=== PATIENT | male | born 1950 | race Caucasian/White ===

== ENCOUNTER 2022-08-30 08:59 | Inpatient (IN) | payer OTHER ==
[2022-08-30] VITALS (18 sets, daily range): BP systolic 110–176; BP diastolic 41–108
[~2022-08-30] VITALS: Ht 180.3 cm; Wt 80.4 kg
[~2022-08-30 08:59] MED LIST: ATOR10 PO; ATOR40TA PO; Aspir 8181 MG PO; CENTRUM SILVER1 EAC2 PO; Cleocin HCl150 MG PO; ELIQUIS2.5 M1 PO; GABA300 PO; GABAPENTIN600 MG PO; GLIP5 PO; LEVFLO500 PO; LIDO700A20 TOP; Lisinopril2.5 MG PO; METF500 PO; METFORMIN HCL500 M2 PO; MIRT15 PO; MSM1000 MG PO; Percocet 5-3251 EACH PO; TAMS.4ER PO; UBID10
[2022-08-30 09:47] LABS: BASOPHILS ABSOLUTE AUTO 0.07 K/mm3 (0.00-0.23); BASOPHILS PERCENT AUTO 0 % (0-2); EOSINOPHILS PERCENT AUTO 0 % (0-6); Hematocrit 38.6 % (37.0-53.0); Hemoglobin 12.8 g/dL (13.5-17.5); IMMATURE GRAN ABSOLUTE AUTO 0.13 K/mm3 (0.00-0.10); IMMATURE GRAN PERCENT AUTO 1 % (0-1); LYMPHOCYTES ABSOLUTE AUTO 0.82 K/mm3 (0.84-5.20); LYMPHOCYTES PERCENT AUTO 4 % (21-46); MONOCYTES ABSOLUTE AUTO 0.79 K/mm3 (0.16-1.47); MONOCYTES PERCENT AUTO 4 % (4-13); Mean Corpuscular HGB 29.7 pg (26.0-34.0); Mean Corpuscular HGB Conc 33.2 g/dL (31.5-36.5); Mean Corpuscular Volume 90 fL (80-100); NEUTROPHILS ABSOLUTE AUTO 17.07 K/mm3 (1.96-9.15); NEUTROPHILS PERCENT AUTO 90 % (41-73); Platelet Count 503 K/mm3 (150-400); RDW Coefficient Variation 12.5 % (11.7-14.2); RDW Standard Deviation 41.1 fL (35.1-46.3); Red Blood Cell Count 4.31 M/mm3 (4.30-5.90); White Blood Cell Count 18.88 K/mm3 (4.00-11.30)
[2022-08-30 10:33] LABS: Magnesium, Blood 2.4 mg/dL (1.6-2.4)
[2022-08-30 10:56] LABS: Albumin, Blood 3.5 g/dL (3.4-5.0); Albumin/Globulin Ratio 0.9 (0.8-1.8); Bilirubin, Total 0.9 mg/dL (0.1-1.0); Bun/Creatinine Ratio 32.3 (12.0-20.0); Calcium, Blood 9.2 mg/dL (8.5-10.1); Creatinine, Blood 0.77 mg/dL (0.60-1.20); Potassium, Blood 3.3 mmol/L (3.5-5.5); Total Protein, Blood 7.5 g/dL (6.4-8.2)
[2022-08-30 11:05] LABS: Beta-hydroxybutyrate 108.7 mg/dL (0.2-2.8)
[2022-08-30 12:36] LABS: Source, Urine Clean Catch
[2022-08-30 12:56] LABS: Appearance, Urine Clear (Clear); Bilirubin, Urine Neg (Neg); Blood, Urine 1+ (Neg); Color, Urine Yellow (P-Yellow); Glucose Qualitative, Urine 4+ (Neg); Ketones, Urine 4+ (Neg); Leukocyte Esterase, Urine Neg (Neg); Nitrite, Urine Neg (Neg); Protein, Urine 2+ (Neg); Specific Gravity, Urine 1.025 (1.003-1.022); Urobilinogen, Urine NORM (Normal)
[2022-08-30 13:24] LABS: PCO2 Arterial 10.8 mmHg (35-45); PO2 Arterial 126 mmHg (80-100); pH Blood Arterial 7.09 (7.35-7.45)
[2022-08-30 13:40] LABS: Bacteria Rare /hpf; Squamous Epithelial Cells Not Seen /hpf (Few); White Blood Cells, Urine Not Seen /hpf (0-5)
[2022-08-30 15:14] LABS: Bun/Creatinine Ratio 37.5 (12.0-20.0); Calcium, Blood 8.6 mg/dL (8.5-10.1); Creatinine, Blood 0.69 mg/dL (0.60-1.20); Potassium, Blood 3.7 mmol/L (3.5-5.5)
--- NOTE | 2022-08-30 17:15 | NUR ---
URINARY RETENTION: PROVIDER CONTACTED & UPDATED ON PT's POST-VOID RESIDUAL OF > 800 ML NOTED ON BLADDER SCAN. 1125 ML UO NOTED DURING STRAIGHT CATH COMPLETED BY THIS RN. PROVIDER HAS BEEN UPDATED & STS TO PLACE STUBBS CATHETER FOR URINE RETENTION. PT HAS HX OF PROSTATE ENLARGEMENT & NEW PROSTATE CANCER. THIS RN WILL PLACE STUBBS CATHETER.
[2022-08-30 17:42] LABS: Source, Urine Foley catheter
[2022-08-30 17:57] LABS: Appearance, Urine Clear (Clear); Bilirubin, Urine Neg (Neg); Blood, Urine 2+ (Neg); Color, Urine Yellow (P-Yellow); Glucose Qualitative, Urine 4+ (Neg); Ketones, Urine 4+ (Neg); Leukocyte Esterase, Urine Neg (Neg); Nitrite, Urine Neg (Neg); Protein, Urine 2+ (Neg); Specific Gravity, Urine 1.025 (1.003-1.022); Urobilinogen, Urine NORM (Normal)
[2022-08-30 18:16] LABS: Red Blood Cells, Urine 0-2 /hpf (0-2); White Blood Cells, Urine 0-2 /hpf (0-5)
[2022-08-30 18:17] LABS: Bacteria Rare /hpf; Granular Casts 0-2 /lpf (0); Squamous Epithelial Cells Not Seen /hpf (Few)
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
[2022-08-30 18:42] LABS: Base Excess Venous -25.7 mmol/L; Bicarbonate Venous 7.8 mmol/L (24.0-30.0); PCO2 Venous 19.9 mmHg (38-42); pH Blood Venous 7.02 (7.34-7.37)
[2022-08-30 19:19] LABS: Calcium, Blood 8.7 mg/dL (8.5-10.1); Creatinine, Blood 0.77 mg/dL (0.60-1.20); Potassium, Blood 3.2 mmol/L (3.5-5.5)
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
[2022-08-30 21:18] LABS: Bun/Creatinine Ratio 33.1 (12.0-20.0); Calcium, Blood 8.4 mg/dL (8.5-10.1); Creatinine, Blood 0.76 mg/dL (0.60-1.20); Potassium, Blood 3.3 mmol/L (3.5-5.5)
[2022-08-31] VITALS (36 sets, daily range): BP systolic 105–177; BP diastolic 57–138
[2022-08-31 01:21] LABS: Bun/Creatinine Ratio 30.1 (12.0-20.0); Calcium, Blood 8.7 mg/dL (8.5-10.1); Creatinine, Blood 0.73 mg/dL (0.60-1.20); Potassium, Blood 3.3 mmol/L (3.5-5.5)
[2022-08-31 04:56] LABS: Hematocrit 32.7 % (37.0-53.0); Hemoglobin 11.2 g/dL (13.5-17.5); Mean Corpuscular HGB 29.7 pg (26.0-34.0); Mean Corpuscular HGB Conc 34.3 g/dL (31.5-36.5); Mean Corpuscular Volume 87 fL (80-100); Mean Platelet Volume 8.9 fL (9.1-12.4); Platelet Count 435 K/mm3 (150-400); RDW Standard Deviation 40.3 fL (35.1-46.3); Red Blood Cell Count 3.77 M/mm3 (4.30-5.90); White Blood Cell Count 17.66 K/mm3 (4.00-11.30)
[2022-08-31 05:14] LABS: Albumin, Blood 2.9 g/dL (3.4-5.0); Albumin/Globulin Ratio 0.9 (0.8-1.8); Bilirubin, Total 0.6 mg/dL (0.1-1.0); Bun/Creatinine Ratio 30.9 (12.0-20.0); Calcium, Blood 8.5 mg/dL (8.5-10.1); Creatinine, Blood 0.68 mg/dL (0.60-1.20); Globulin, Blood 3.3 g/dL (2.2-4.0); Potassium, Blood 3.2 mmol/L (3.5-5.5); Total Protein, Blood 6.2 g/dL (6.4-8.2)
--- NOTE | 2022-08-31 05:59 | NUR ---
SHIFT SUMMARY: NO ACUTE CHANGES OVERNIGHT. VSS THROUGHOUT THE SHIFT; BP STARTED TO BECOME HYPERTENSIVE, PROVIDER UPDATED AND ORDERS RECIEVED (SEE EMAR). PT HAS BEEN IN AND OUT OF SLEEP. INSULIN GTT @ 2 UNITS/HR AND D5 BICARB GTT @ 100 MLS/HR. PT HAD SOME EPISODE OF NAUSEA BUT SUBSIDED ONCED MEDICATED WITH ZOFRAN PER EMAR. PT CONTINUED TO TOLERATE SMALL SIPS OF WATER THROUGHOUT THE NIGHT. PT HAD 1750 ML OUTPUT THIS SHIFT. BED LOWERED, CALL LIGHT IN REACH, WILL CONTINUE TO MONITOR UNTIL ONCOMING RN ARRIVES.
[2022-08-31 08:13] LABS: Base Excess Venous -10.7 mmol/L; Bicarbonate Venous 16.6 mmol/L (24.0-30.0); PCO2 Venous 33.2 mmHg (38-42); pH Blood Venous 7.29 (7.34-7.37)
[2022-08-31 08:37] LABS: Beta-hydroxybutyrate 32.1 mg/dL (0.2-2.8); Magnesium, Blood 2.4 mg/dL (1.6-2.4)
[2022-08-31] MEDS ORDERED: ATOR40TA PO (10:29)
[2022-08-31] MEDS ORDERED: GABA300 PO (10:30)
[2022-08-31] MEDS ORDERED: EMPAGLIFLOZIN PO (10:33)
[2022-08-31] MEDS ORDERED: METFORMIN PO (10:33)
[2022-08-31] MEDS ORDERED: METF500 PO (10:33)
[2022-08-31] MEDS ORDERED: LINAGLIPTIN PO (10:33)
[2022-08-31] MEDS ORDERED: C COMPLEX1000 M1 PO (10:36)
[2022-08-31 10:58] LABS: Bun/Creatinine Ratio 26.8 (12.0-20.0); Calcium, Blood 8.8 mg/dL (8.5-10.1); Creatinine, Blood 0.67 mg/dL (0.60-1.20); Potassium, Blood 2.8 mmol/L (3.5-5.5)
[2022-08-31 14:23] LABS: Bun/Creatinine Ratio 22.7 (12.0-20.0); Calcium, Blood 8.9 mg/dL (8.5-10.1); Creatinine, Blood 0.66 mg/dL (0.60-1.20); Potassium, Blood 3.6 mmol/L (3.5-5.5)
[2022-08-31 17:26] LABS: Bun/Creatinine Ratio 21.9 (12.0-20.0); Creatinine, Blood 0.73 mg/dL (0.60-1.20); Potassium, Blood 3.5 mmol/L (3.5-5.5)
--- NOTE | 2022-08-31 17:44 | NUR ---
SUMMARY PT A/O X4. HAS PAIN WITH MOVEMENT BUT IS ABLE TO REST WHILE UNDISTURBED. R ARM IS IN IMMOBILIZER. INSULIN GTT STOPPED TODAY WELL BICARB. SODIUM HAS BEEN CLIMBING. DR. LOVE STARTED PT ON D5 IVF. WANTS TO CONTINUE WITH SS INSULIN FOR NOW. PT IS TAKING IN WATER AND SIPS OF BROTH WITHOUT N/V. MOSTLY WANTS TO SLEEP. NO SIGN OF DISTRESS.
[2022-08-31 20:13] LABS: Bun/Creatinine Ratio 24.5 (12.0-20.0); Calcium, Blood 8.9 mg/dL (8.5-10.1); Creatinine, Blood 0.69 mg/dL (0.60-1.20); Potassium, Blood 3.6 mmol/L (3.5-5.5)
--- NOTE | 2022-08-31 20:38 | NUR ---
UPDATE CONSULTED HOSPITALIST ABOUT PT'S CHANGE IN MENTATION FROM DAYSHIFT (PT WAS A&OX4 PER REPORT). CT WO CONTRAST+VBG ORDERED.
--- NOTE | 2022-08-31 20:52 | NUR ---
ASSUMED CARE PT IS ALERT AND ORIENTED TO SELF ONLY. PT WAS ONLY ABLE TO TELL ME HIS BIRTHDATE AND HIS' 'S NAME, BUT WAS UNABLE TO ACCURATELY GIVE ANY OTHER ANSWER. PT IS NOT ABLE TO HOLD FOCUS FOR LONGER THAN A FEW SECONDS. WAS INFORMED DURING REPORT FROM DAYSHIFT THAT PT HAS BEEN A&O X4. HOSPITALIST CALLED W/ ORDERS FOR CT W/O CONTRAST AND VBG. PT WAS ABLE TO STAY AWAKE FOR WHOLE ASSESSMENT. SPO2 >92% ON RA; MAP <65; AFIB W/ HR IN THE 100-130'S.
[2022-08-31 21:39] LABS: Base Excess Venous -15.5 mmol/L; Bicarbonate Venous 13.7 mmol/L (24.0-30.0); PCO2 Venous 23.9 mmHg (38-42); pH Blood Venous 7.28 (7.34-7.37)
[2022-09-01] VITALS (29 sets, daily range): BP systolic 117–176; BP diastolic 52–102
[2022-09-01 03:42] LABS: Base Excess Venous -13.1 mmol/L; Bicarbonate Venous 14.9 mmol/L (24.0-30.0); PCO2 Venous 26.9 mmHg (38-42)
[2022-09-01 03:57] LABS: Hematocrit 32.2 % (37.0-53.0); Hemoglobin 11.1 g/dL (13.5-17.5); Mean Corpuscular HGB Conc 34.5 g/dL (31.5-36.5); Mean Corpuscular Volume 87 fL (80-100); Mean Platelet Volume 9.2 fL (9.1-12.4); Platelet Count 410 K/mm3 (150-400); RDW Coefficient Variation 13.4 % (11.7-14.2); RDW Standard Deviation 41.5 fL (35.1-46.3); White Blood Cell Count 15.22 K/mm3 (4.00-11.30)
[2022-09-01 04:48] LABS: Albumin, Blood 2.8 g/dL (3.4-5.0); Albumin/Globulin Ratio 0.8 (0.8-1.8); Bilirubin, Total 0.7 mg/dL (0.1-1.0); Bun/Creatinine Ratio 21.6 (12.0-20.0); Calcium, Blood 8.6 mg/dL (8.5-10.1); Creatinine, Blood 0.7 mg/dL (0.60-1.20); Globulin, Blood 3.5 g/dL (2.2-4.0); Potassium, Blood 3.4 mmol/L (3.5-5.5); Total Protein, Blood 6.3 g/dL (6.4-8.2)
--- NOTE | 2022-09-01 06:01 | NUR ---
SHIFT SUMMARY PT IS ALERT TO SELF, LOCATION, BUT CONTINUES TO BELIEVE IT'S 1991. OTHERWISE PT HAS NOT SHOWN ANY MORE APPARENT CHANGES IN NEURO STATUS. SPO2 >92% ON RA; MAP >65; HR VARIABLE 100-130'S. PT ONLY COMPLAINTS TONIGHT WERE FOR RIGHT SHOULDER PAIN, BUT OTHERWISE STATED HE WAS COMFORTABLE. STUBBS CATHETER PATENT AND DRAINING TO GRAVITY.
--- NOTE | 2022-09-01 10:00 | NUR ---
PT MORE CONFUSED TODAY. WHEN DRINKING WATER PT SWISHES WATER AROUND MOUTH FOR AWHILE BEFORE SWALLOWING. NOTIFIED DR. LOVE AND HOLDING PO MEDS UNTIL ST EVAL.
[2022-09-01 14:39] LABS: Beta-hydroxybutyrate 38.7 mg/dL (0.2-2.8); Bun/Creatinine Ratio 23.1 (12.0-20.0); Calcium, Blood 8.7 mg/dL (8.5-10.1); Creatinine, Blood 0.61 mg/dL (0.60-1.20); Potassium, Blood 3.2 mmol/L (3.5-5.5)
--- NOTE | 2022-09-01 17:30 | NUR ---
SUMMARY PT A/O TO PERSON. GETS IRRITABLE WHEN ASKED ORIENTATION QUESTIONS. STATES PT GETS IRRITABLE WITH QUESTIONING AT HOME WELL. MORE AWAKE THIS EVENING. ABLE TO FEED SELF PUREE DIET WITH SUPERVISION. WITH THICKENED LIQUIDS PT DOES NOT HESITATE TO SWALLOW LIKE HE HAD EARLIER IN THE DAY. IV METOPROLOL GIVEN FOR HR AND BP PRIOR TO SWALLOW EVAL. PT DENIES PAIN ALL DAY BUT WILL MOAN IN PAIN WITH REPOSITIONING. DID NOT GET PT OOB TODAY DUE TO INCREASED HR.
[2022-09-01 18:50] LABS: Bun/Creatinine Ratio 20.2 (12.0-20.0); Calcium, Blood 8.9 mg/dL (8.5-10.1); Creatinine, Blood 0.69 mg/dL (0.60-1.20); Potassium, Blood 2.9 mmol/L (3.5-5.5)
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
[2022-09-02] VITALS (25 sets, daily range): BP systolic 117–192; BP diastolic 64–127
--- NOTE | 2022-09-02 06:09 | NUR ---
SHIFT SUMMARY: PT BECAME INCREASINGLY CONFUSED THE NIGHT PROGRESSED. PT THOUGHT THAT HE WAS IN THE [place] AND WAS HALLUCINATING THAT HIS STEP-SON WAS OUTSIDE OF HIS ROOM. WITH REDIRECTION PT BEGAN TO REALIZE THAT PT WAS IN THE HOSPITAL AND SETTLED. PT ASLEEP AT THIS TIME AND HAS BEEN SLEEPING SINCE. PT TOLERATING NECTAR THICK LIQUIDS. D5 @ 150 MLS/HR; CBG Q2HR AVERAGE 200-220. VSS STABLE THROUGHOUT THE NIGHT. PT UPDATED IN THE BEGINNING OF THE SHIFT AND ALL QUESTIONS ANSWERED. BED LOWERED, CALL LIGHT IN REACH, WILL CONTINUE TO MONITOR UNTIL ONCOMING RN ARRIVES.
[2022-09-02 07:11] LABS: BASOPHILS ABSOLUTE AUTO 0.03 K/mm3 (0.00-0.23); BASOPHILS PERCENT AUTO 0 % (0-2); EOSINOPHILS ABSOLUTE AUTO 0.01 K/mm3 (0.00-0.68); EOSINOPHILS PERCENT AUTO 0 % (0-6); Hematocrit 31.6 % (37.0-53.0); Hemoglobin 11.1 g/dL (13.5-17.5); IMMATURE GRAN ABSOLUTE AUTO 0.04 K/mm3 (0.00-0.10); IMMATURE GRAN PERCENT AUTO 0 % (0-1); LYMPHOCYTES PERCENT AUTO 18 % (21-46); MONOCYTES PERCENT AUTO 7 % (4-13); Mean Corpuscular HGB 29.9 pg (26.0-34.0); Mean Corpuscular HGB Conc 35.1 g/dL (31.5-36.5); Mean Corpuscular Volume 85 fL (80-100); NEUTROPHILS ABSOLUTE AUTO 8.85 K/mm3 (1.96-9.15); NEUTROPHILS PERCENT AUTO 75 % (41-73); Platelet Count 395 K/mm3 (150-400); RDW Coefficient Variation 13.3 % (11.7-14.2); RDW Standard Deviation 40.9 fL (35.1-46.3); Red Blood Cell Count 3.71 M/mm3 (4.30-5.90); White Blood Cell Count 11.83 K/mm3 (4.00-11.30)
[2022-09-02 07:26] LABS: Bun/Creatinine Ratio 20.1 (12.0-20.0); Calcium, Blood 8.8 mg/dL (8.5-10.1); Creatinine, Blood 0.65 mg/dL (0.60-1.20); Potassium, Blood 3.2 mmol/L (3.5-5.5)
--- NOTE | 2022-09-02 09:28 | NUR ---
ASSUME CARE: I assumed care of this patient at 0700. At that time pt had arm board in place to immobilize left upper arm from previous shift. Right arm was resting at pt's side. Arm board removed and RUE placed in shoulder immobizer. MAGY wrap of left thumb spica was resecured. Distal CMS of BUE intact.
--- NOTE | 2022-09-02 10:16 | NUR ---
UPDATE: Spoke with Dr Mcallister over the phone; see new orders. Called pt's ; no answer, voicemail box full.
--- NOTE | 2022-09-02 10:40 | NUR ---
FAMILY UPDATE: Pt at bedside. Updated on status change and care plan.
[2022-09-02 14:25] LABS: Bun/Creatinine Ratio 21.5 (12.0-20.0); Calcium, Blood 9.1 mg/dL (8.5-10.1); Creatinine, Blood 0.7 mg/dL (0.60-1.20); Potassium, Blood 3.3 mmol/L (3.5-5.5)
--- NOTE | 2022-09-02 17:00 | NUR ---
ESCALATION: Pts behavior continues to escalate. He is attempting to climb out of bed, biting at mitts, and yelling at staff. Pt denies the need for medical treatment and states he needs to get out of here and go to work.
--- NOTE | 2022-09-02 17:16 | NUR ---
PROVIDER UPDATE: Dr Mcallister updated on pt status. See new orders.
--- NOTE | 2022-09-02 17:35 | NUR ---
UPDATE: Pt offered zyprexa and ice water. He initially took tablet, then spit it out when RN returned to computer. He was asked if he would prefer an IM injection or an ODT. He responded by yelling and cussing at RN. Provider notified.
--- NOTE | 2022-09-02 19:52 | NUR ---
ASSUMED CARE PT IS ALERT AND ORIENTED TO SELF ONLY; BELIEVES HE IS AT [facility] AND THAT IT IS 1971. PT IS NOT ABLE TO HOLD FOCUS FOR VERY LONG AND REQUIRES REPEATED PROMPTS TO GET PT TO ANSWER QUESTION. PT IS CURRENTLY RESTING QUIETLY WATCHING T.V., WILL REASSESS NEED FOR RESTRAINTS.
--- NOTE | 2022-09-02 23:58 | NUR ---
TRANSFER PT TRANSFERRED TO PCU 9 W/ BELONGINGS AND CHART.
[2022-09-03 00:05] VITALS: BP 147/85
--- NOTE | 2022-09-03 00:55 | NUR ---
Assumed care of patient at approx 0000, transfered from ICU. I have reviewed previous rn intake and am in agreement. hr 100, occasinally taching up to 140's, bp stable. Other vss. Will continue to monitor.
[2022-09-03 04:34] VITALS: BP 132/93
[2022-09-03 04:54] LABS: Hematocrit 31.7 % (37.0-53.0); Hemoglobin 10.9 g/dL (13.5-17.5); Mean Corpuscular HGB 29.6 pg (26.0-34.0); Mean Corpuscular HGB Conc 34.4 g/dL (31.5-36.5); Mean Corpuscular Volume 86 fL (80-100); Mean Platelet Volume 8.9 fL (9.1-12.4); Platelet Count 421 K/mm3 (150-400); RDW Coefficient Variation 13.3 % (11.7-14.2); RDW Standard Deviation 41.4 fL (35.1-46.3); Red Blood Cell Count 3.68 M/mm3 (4.30-5.90); White Blood Cell Count 12.25 K/mm3 (4.00-11.30)
[2022-09-03 05:16] LABS: Albumin, Blood 2.6 g/dL (3.4-5.0); Albumin/Globulin Ratio 0.8 (0.8-1.8); Bilirubin, Total 0.8 mg/dL (0.1-1.0); Calcium, Blood 8.9 mg/dL (8.5-10.1); Creatinine, Blood 0.67 mg/dL (0.60-1.20); Globulin, Blood 3.4 g/dL (2.2-4.0); Potassium, Blood 3.6 mmol/L (3.5-5.5)
--- NOTE | 2022-09-03 06:51 | NUR ---
Pt up in chair with chair alarm in place. Heart rate sustaining in 130, touching 160's, medicated X1 with lopressor iv, other vss. No other acute changes noted. Will continue to monitor.
[2022-09-03 07:50] VITALS: BP 185/93
[2022-09-03 11:50] VITALS: BP 150/83
--- NOTE | 2022-09-03 14:47 | NUR ---
PT WOKEN FROM NAP TO TAKE LOPRESSOR, PT AWOKE STATING THAT HE WAS IN "[place]" HE WAS VERY PARANOID OF STAFF. HE STATED THAT HE WAS NOT TAKING PILLS STATING THAT THEY WERE "NOT REAL", THIS RN ATTEMPTED NUMEROUS TIMES WITHOUT SUCCESS TO MEDICATE THE PATIENT. ADDITIONAL STAFF TO ROOM TO ASSIST PT CONTINUES TO REFUSE STATING THAT MEDICATIONS WERE "NOT REAL" CONTINUES TO STATE THAT HE IS ON "[place]"
[2022-09-03 15:40] VITALS: BP 165/93
--- NOTE | 2022-09-03 18:12 | NUR ---
PT BEGAN THE SHIFT ALERT, ORIENTED TO SELF, PLACE, AND FAMILY. AFTERNOON PT AWOKE FROM A NAP AND WAS CONFUSED AND AGITATED, SEE NOTE. HEART RHYTHM HAS RANGED FROM 90 TO 140 T/O THE DAY WITH AFIB AND SINUS TACH NOTED, HE DENIES CP. PT WAS MEDICATED FOR AGITATION THIS EVENING AND IS NOW SLEEPING. PT IS A TWO PERSON ASSIST TO TRANSFER, PT UNABLE TO URINATE IN URINAL IN BED AND REQUIRES GETTING UP, BY THE END OF THE SHIFT PT IS NO LONGER FOLLOWING DIRECTION OR SAFE TO BE TRANSFERING HE IS NOT ABLE TO FOLLOW DIRECTIONS. SUTURES REMOVED FROM RT EYE BROW, 4 SUTURES REMAINED IN EYE BROW THEY WERE REMOVED, SPOUSE EXPRESSED THAT SHE WAS UPSET THEY REMAINED IN STATED "THEY ARE ABOUT TO GROW IN" SHE IS EDUCATED THOROUGHLY THE SUTURES ARE REMOVED.
--- NOTE | 2022-09-03 20:07 | NUR ---
ASSUMED PT CARE FORM KEY DA SILVA ON . PT IS A&OX2 AT THIS TIME. UNABLE TO TELL ME THAT DATE OR YEAR. ORIENTED TO PLACE AND SELF AT THIS TIME. PT STATES "MY BUTT HURTS" WHEN ASKED IF HE HAD PAIN ANYWHERE. REPOSITIONED IN BED FOR COMFORT. RESPIRATIONS EVEN AND UNLABORED ON RA. HR IN SR IN LOW 100'S AT THIS TIME. DOES NOT APPEAR IN ANY DISTRESS. CALL LIGHT IN REACH. AVDIANA MOJICA IN ROOM FOR PT SAFETY.
[2022-09-03 20:17] VITALS: BP 155/81
[2022-09-04 00:30] VITALS: BP 124/71
[2022-09-04 03:33] VITALS: BP 119/68
[2022-09-04 03:48] LABS: Hematocrit 26.4 % (37.0-53.0); Hemoglobin 9.2 g/dL (13.5-17.5); Mean Corpuscular HGB 30.4 pg (26.0-34.0); Mean Corpuscular HGB Conc 34.8 g/dL (31.5-36.5); Mean Corpuscular Volume 87 fL (80-100); Mean Platelet Volume 8.9 fL (9.1-12.4); Platelet Count 373 K/mm3 (150-400); RDW Coefficient Variation 13.3 % (11.7-14.2); RDW Standard Deviation 41.4 fL (35.1-46.3); Red Blood Cell Count 3.03 M/mm3 (4.30-5.90); White Blood Cell Count 9.29 K/mm3 (4.00-11.30)
[2022-09-04 04:05] LABS: Albumin, Blood 2.2 g/dL (3.4-5.0); Albumin/Globulin Ratio 0.7 (0.8-1.8); Bilirubin, Total 0.7 mg/dL (0.1-1.0); Bun/Creatinine Ratio 21.6 (12.0-20.0); Calcium, Blood 8.2 mg/dL (8.5-10.1); Creatinine, Blood 0.7 mg/dL (0.60-1.20); Potassium, Blood 3.1 mmol/L (3.5-5.5); Total Protein, Blood 5.2 g/dL (6.4-8.2)
--- NOTE | 2022-09-04 06:48 | NUR ---
SHIFT SUMMARY: NO ACUTE CHANGES NOTED DURING THIS SHIFT. PT LAYING IN BED THROUGHOUT NIGHT. MEDICATED FOR PAIN IN RIGHT SHOULDER X 1, SEE EMAR. PT HAD MULTIPLE INCONTINENT VOIDS THROUGHOUT NIGHT, ALSO ABLE TO HAVE CONTINENT VOIDS. URINE DARK YELLOW. PT UP TO CHAIR WITH 2 ASSIST. PT USES WALKER WITH LEFT SIDED ARM REST. POSITIONED FOR COMFORT WITH PILLOW. COFFEE PROVIDED AT PT REQUEST. CHAIR ALARM ON. CALL LIGHT IN REACH. CHANELL IN ROOM FOR PT SAFETY.
[2022-09-04 08:41] VITALS: BP 140/73
[2022-09-04] MEDS ORDERED: ELIQUIS5 M2 PO (11:13)
[2022-09-04] MEDS ORDERED: Percocet 5-3251 EACH PO (11:15)
[2022-09-04] MEDS ORDERED: BASAGLAR K100 UNIT/1 SC (11:17)
[2022-09-04] MEDS ORDERED: METO50 PO (11:18)
--- NOTE | 2022-09-04 11:30 | NUR ---
PT AND FAMILY EDUCATED THOROUGHLY ABOUT DC TEACHING. FAMILY EDUCATED HOW TO ADMINISTER INSULIN, SHE PERFORMED RETURN DEMONSTRATION OF INSULIN ADMINISTRATION CORRECTLY. FAMILY DENIES FURTHER NEEDS. POWERGLIDE REMOVED, PRESSURE DRESSED NO BLEEDING
== END 2022-09-04 12:50 | disposition home or self-care (01) | DRG 637 ==
LOC: ER 08:59 → PCU 12:48 → ICUE 12:48 → PCU 09-03 00:11
PROVIDERS: Emergency Medicine; Nurse Practitioner Acute Care; Student in an Organized Health Care Education/Training Program; ADMIT Internal Medicine
PROC: 4A033R1 Measurement of Arterial Saturation, Peripheral, Percutaneous Approach (ICD-10-PCS; principal; 2022-08-30)
DX: E11.10 Type 2 diabetes mellitus with ketoacidosis without coma (principal); G92.8 Other toxic encephalopathy; E87.0 Hyperosmolality and hypernatremia; I47.1 Supraventricular tachycardia; D63.8 Anemia in other chronic diseases classified elsewhere; J44.9 Chronic obstructive pulmonary disease, unspecified; E87.6 Hypokalemia; I48.0 Paroxysmal atrial fibrillation; I10 Essential (primary) hypertension; E11.40 Type 2 diabetes mellitus with diabetic neuropathy, unspecified; N40.0 Benign prostatic hyperplasia without lower urinary tract symptoms; Z96.642 Presence of left artificial hip joint; Z85.46 Personal history of malignant neoplasm of prostate; Z86.73 Personal history of transient ischemic attack (TIA), and cerebral infarction without residual deficits; Z79.01 Long term (current) use of anticoagulants; Z79.82 Long term (current) use of aspirin; Z79.84 Long term (current) use of oral hypoglycemic drugs; Z79.890 Hormone replacement therapy; Z79.899 Other long term (current) drug therapy
CPT/HCPCS: 29125; 36600; 51701; 51703; 70450; 71046; 73120; 80048; 80053; 81001; 82010; 82533; 82803; 82947; 83735; 84484; 85025; 85027; 92526; 92610; 93005; 93010; 96361-59; 96365-59; 96366-59; 96375-59; 97110; 97116; 97162; 97166; 97530; 97535; 99285-25; A9270; C1751; J1170; J1644; J1815; J2270; J2405; J3480; J3486; J7030; J7042; J7050; J7070